=== PATIENT | male | born 1950 | race Caucasian/White ===

== ENCOUNTER 2018-06-15 05:21 | Day surgery (SDC) | payer OTHER ==
[2018-06-14 11:12] VITALS: BMI 30.7
[2018-06-15] MEDS ORDERED: MIDAZOLAM HCL 2 MG/2 ML SINGLE DOSE VIAL ONE (08:21)
[2018-06-15] MEDS ORDERED: ACETAMINOPHEN 1000 MG/100 ML VIAL (NON FORMULARY) IVPB ONE (08:37)
--- NOTE | 2018-06-15 08:37 | HP ---
[facility] - Chief Complaint Chief Complaint: left ureteral stone History of Present Illness: 68 year old male with a left upper ureteral calculus. renal colic has improved but the stone persists and there is some mild to moderate left hydronephrosis. No fevers. History Source: Patient, Medical Record Limitations to Obtaining History: No Limitations - Past Medical History Allergies/Adverse Reactions: Allergies Allergy/AdvReac Type Severity Reaction Status Date / Time clarithromycin [From Biaxin] Allergy "diarrhea" Verified 06/15/18 07:30 Penicillins AdvReac Intermediate , Verified 06/15/18 07:30 "diarrhea" [employer]: No: Alzheimer's, CVA, Dementia, Migraine, Multiple Sclerosis, Peripheral Neuropathy, Parkinson's, Seizure, Syncope, TIA, Vertigo, Other Cardiovascular: No: AFIB, Aneurysm, Aortic Insufficiency, Aortic Stenosis, CAD, CHF, Deep Vein Thrombosis, HTN, Hyperlipdemia, [place], Mitral Insufficiency, Mitral Stenosis, Murmur, Pulmonary Hypertension, Other Pulmonary: No: Asthma, Bronchitis, Cancer, COPD, O2 Dependent, Pneumonia, Previously Intubated, Pulmonary Embolus, Pulmonary Fibrosis, Sleep Apnea, Other Gastrointestinal: No: Ascites, Cancer, Constipation, Crohn's Disease, Diverticulitis, Diverticulosis, Esophageal Varices, Gastritis, GERD, GI Bleed, Hemorrhoids, Hiatal Hernia, Inflamatory Bowel Disease, Irritable Bowel Disease, Pancreatitis, Peptic Ulcer Disease, Ulcerative Colitis, Other Hepatobiliary: No: Cirrhosis, Cholelithiasis, Cholecystitis, Choledocholithiasis , Hepatitis A, Hepatitis B, Hepatitis C, Other Renal/: Yes: Renal Calculi. No: Renal Failure, Renal Inusuff, BPH, Cancer, Hematuria, Hemodialysis, Neurogenic Bladder, UTI, Other Heme/Onc: No: Anemia, B12 Deficiency, Bleeding Disorder, Cancer, Current Chemotherapy, Current Radiation Therapy, Hemochromatosis, Hypercoaguable State, Myeloproliferative Synd, Sickle Cell Disease, Sickle Cell Trait, Thrombocytopenia, Other - Current Medications Current Medications: Home Medications Medication Instructions Recorded Aspirin [Adult Aspirin] 81 mg PO DAILY 06/14/18 Atorvastatin Ca [Lipitor] 40 mg PO HS 06/14/18 Gemfibrozil 600 mg PO BID 06/14/18 Valsartan/Hydrochlorothiazide 320 mg PO DAILY 06/14/18 [Valsartan-Hctz 320-12.5 mg Tab] [facility] Physical Exam - Physical Examination Vital Signs: Vital Signs Period Temp Pulse Resp BP Sys/[place] Pulse Ox Last 24 Hr 98.8 F-98.8 F 85-85 20-20 142-142/96-96 99 General Appearance: Well Nourished, Well Developed, Alert & Oriented x3 ENT: Clear, No Discharge, No masses Lung: Clear to auscultation Heart: Regular rate & rhythm, Normal S1, Normal S2 Abdomen: Soft, No tenderness, No CVA Extremities: No edema, No tenderness/swelling [facility] Impression/Plan - Impression/Plan Impression: left ureteral calculus with hydronephrosis Operative Procedure: Left ESWL Date to be Performed: 06/15/18
[2018-06-15] MEDS ORDERED: CLINDAMYCIN PHOSPHATE 600 MG/4 ML VIAL IVPB ONE (08:42)
[2018-06-15] MEDS ORDERED: CLINDAMYCIN PHOSPHATE 600 MG/4 ML VIAL ONE (08:43)
[2018-06-15] MEDS ORDERED: DEXTROSE 5%-0.45% SALINE 1,000 ML IV SCH (08:45)
[2018-06-15] MEDS ORDERED: IBUPROFEN 800 MG/8 ML IJ IVPB SCH (08:45)
[2018-06-15] MEDS ORDERED: DEXAMETHASONE SOD PHOSPHATE 4 MG/1 ML VIAL ONE (08:48)
[2018-06-15] MEDS ORDERED: oxyCODONE HCL 5 MG TABLET PO PRN ×2 (08:57)
[2018-06-15] MEDS ORDERED: ONDANSETRON 4 MG/2 ML VIAL IVPUSH PRN (08:57)
[2018-06-15] MEDS ORDERED: LACTATED RINGERS SOLUTION 1,000 ML IV SCH (09:00)
[2018-06-15] MEDS ORDERED: ACETAMINOPHEN INJECTION 100 ML IVPB ONE (09:43)
[2018-06-15 12:03] VITALS: BP 140/80; PULSE 80; TEMP 98
--- NOTE | 2018-06-15 14:47 | OP ---
DATE OF OPERATION: 06/15/2018 PREOPERATIVE DIAGNOSIS: Left ureteral stone. POSTOPERATIVE DIAGNOSIS: Left ureteral stone. PROCEDURE: Left extracorporeal shock wave lithotripsy. ANESTHESIA: General. FINDINGS: A stone in the upper left ureter, 9 x 6 mm. PREOPERATIVE INDICATIONS: The patient is a 68-year-old male with a 9 x 6 mm stone, upper left ureter. He comes for ESWL. OPERATION: The patient was brought to the OR, placed on the table in the supine position. The stone was visualized in 3 planes and localized with the ESWL machine. Next, 300 shocks were applied after the patient was given anesthesia and clindamycin. Patient tolerated the procedure well. He was then woken up. [place] [id number]
== END 2018-06-15 12:06 | disposition home or self-care (01) ==
LOC: JASU-SURG 05:21
PROVIDERS: ATTEND Urology
PROC: 0TF7XZZ Fragmentation in Left Ureter, External Approach (ICD-10-PCS; principal; 2018-06-15 08:30)
DX: N20.1 Calculus of ureter (principal)
CPT/HCPCS: J0131

== ENCOUNTER 2023-08-07 13:41 | Emergency (ER) | payer OTHER ==
[2023-08-07 14:12] VITALS: TEMP 97.8; BMI 32.3
[2023-08-07] MEDS ORDERED: ACETAMINOPHEN 1000 MG/100 ML BAG IVPB ONE (14:19)
[2023-08-07] MEDS ORDERED: ACETAMINOPHEN INJECTION 100 ML IVPB ONE (15:00)
[2023-08-07 15:21] LABS: HEMATOCRIT 47.2 % (35.4-49); HEMOGLOBIN 15.3 G/dL (11.7-16.9); MCHC 32.3 g/dl (32.0-35.9); PLATELET COUNT 342.4 10^3/uL (134-434); RBC 5.08 10^6/uL (4.00-5.60); RDW 15.5 % (11.9-15.9)
[2023-08-07 15:28] LABS: PLATELET ESTIMATE ADEQUATE
[2023-08-07 15:30] LABS: ALBUMIN 5.2 g/dl (3.4-5.0); BILIRUBIN,TOTAL 1.1 mg/dl (0.2-1); CALCIUM 10.2 mg/dl (8.5-10.1); CREATININE 1.3 mg/dl (0.6-1.3); POTASSIUM 4.5 mmol/L (3.5-5.1)
[2023-08-07 15:39] LABS: INR 1.07 (0.83-1.09); PROTHROMBIN TIME (PATIENT) 12.4 SEC (9.7-13.0)
[2023-08-07 15:42] LABS: ACTIVATED PTT 34.1 SECONDS (25.2-36.5)
[2023-08-07 18:22] VITALS: BP 146/98; PULSE 103; RESP 16
== END 2023-08-07 18:59 | disposition home or self-care (01) ==
LOC: FER 13:41
PROC: 3E033NZ Introduction of Analgesics, Hypnotics, Sedatives into Peripheral Vein, Percutaneous Approach (ICD-10-PCS; principal; 2023-08-07)
DX: R10.9 Unspecified abdominal pain (principal); R11.0 Nausea; N21.0 Calculus in bladder
CPT/HCPCS: 36415; 71046-TC-FY; 71275-TC; 74177-TC; 80053; 81003; 81015; 85027; 85379; 85610; 85730; 87086; 99285-25; Q9967

== ENCOUNTER 2023-09-02 03:56 | Day surgery (SDC) | payer OTHER ==
[2023-09-01 08:53] VITALS: BMI 32.6
[2023-09-02] MEDS ORDERED: LIDOCAINE HCL/PF 2% SDV 5ML VIAL ONE (10:36)
[2023-09-02] MEDS ORDERED: PROPOFOL 20 ML ONE (10:36)
[2023-09-02] MEDS ORDERED: MIDAZOLAM HCL 2 MG/2 ML SINGLE DOSE VIAL ONE (10:37)
[2023-09-02] MEDS: ceFAZolin SODIUM 1 GM VIAL IVPB ONE (10:49)
[2023-09-02] MEDS ORDERED: DEXAMETHASONE SOD PHOSPHATE 4 MG/1 ML VIAL ONE (10:52)
[2023-09-02] MEDS ORDERED: ceFAZolin SODIUM 1 GM VIAL ONE (10:52)
[2023-09-02] MEDS ORDERED: ONDANSETRON 4 MG/2 ML VIAL ONE (11:11)
[2023-09-02] MEDS ORDERED: KETOROLAC TROMETHAMINE 30 MG/1 ML VIAL ONE (11:11)
[2023-09-02] MEDS ORDERED: PROMETHAZINE HCL 25 MG/1 ML VIAL IVPB PRN (11:29)
[2023-09-02] MEDS ORDERED: ONDANSETRON 4 MG/2 ML VIAL IVPUSH PRN (11:29)
[2023-09-02] MEDS ORDERED: oxyCODONE HCL 5 MG TABLET PO PRN ×2 (11:29)
[2023-09-02] MEDS ORDERED: LACTATED RINGERS SOLUTION 1,000 ML IV SCH (11:30)
[2023-09-02] MEDS ORDERED: ACETAMINOPHEN INJECTION 100 ML IVPB ONE (11:38)
[2023-09-02] MEDS: ACETAMINOPHEN 1000 MG/100 ML BAG IVPB ONE (11:41)
[2023-09-02 12:16] VITALS: RESP 18
[2023-09-02] MEDS: DEXTROSE 5%-0.45% SALINE 1,000 ML IV SCH (12:35)
[2023-09-02 14:28] VITALS: BP 147/84; PULSE 80; TEMP 97.8
[2023-09-10 21:10] LABS: CA OXALATE MONOHYDR. 10 % (.); SIZE 5x9 mm (.); URIC ACID 90 % (.); WEIGHT 984 mg (.)
== END 2023-09-02 14:10 | disposition home or self-care (01) ==
LOC: JASU-SURG 03:56
PROVIDERS: ATTEND Urology
PROC: 0TCB8ZZ Extirpation of Matter from Bladder, Via Natural or Artificial Opening Endoscopic (ICD-10-PCS; principal; 2023-09-02 10:30)
DX: N21.0 Calculus in bladder (principal)
CPT/HCPCS: 36415; 82360; 88300-TC; 94760; C1758; J0131